=== PATIENT | male | born 1995 | race African-American/Black ===

== ENCOUNTER 2022-04-23 22:37 | Emergency (ER) | payer SELFPAY ==
[~2022-04-23] VITALS: Ht 177.8 cm; Wt 65.0 kg
[2022-04-23 23:00] VITALS: BP 123/78
[2022-04-24] MEDS ORDERED: OMEP40CA20 MT (08:07)
[2022-04-24] MEDS ORDERED: ONDA4TAB50 MT (08:07)
== END 2022-04-24 01:37 | disposition left against medical advice (07) ==
LOC: ER 22:37
DX: Z53.21 Procedure and treatment not carried out due to patient leaving prior to being seen by health care provider (principal)

== ENCOUNTER 2022-04-24 02:46 | Emergency (ER) | payer SELFPAY ==
[~2022-04-24] VITALS: Ht 175.3 cm; Wt 64.5 kg
[2022-04-24] MEDS ORDERED: MAGNESIUM/ALUMINUM HYDROXIDE/SIMETHICONE 30ML UDC PO STA (06:44)
[2022-04-24] MEDS ORDERED: ONDANSETRON 4MG ODT PO STA (06:44)
[2022-04-24] MEDS ORDERED: DICYCLOMINE 10 MG/5 ML ORAL SYR PO STA (06:44)
[2022-04-24 07:40] LABS: CLARITY URINE CLEAR (CLEAR); COLOR URINE YELLOW (YELLOW); KETONES URINE 3+ (NEGATIVE); LEUKOCYTE ESTERASE URINE TRACE (NEGATIVE); NITRITE URINE NEGATIVE (NEGATIVE); OCCULT BLOOD URINE NEGATIVE (NEGATIVE); PROTEIN URINE 2+ (NEGATIVE); SPECIFIC GRAVITY URINE 1.039 (1.005-1.030)
[2022-04-24 07:51] LABS: HEMATOCRIT. 41.3 % (42.0-52.0); HEMOGLOBIN. 13.7 g/dL (14.0-18.0); MEAN CORPUSCULAR HEMOGLOBIN 30.5 pg (28.0-32.0); MEAN CORPUSCULAR VOLUME 91.9 fL (80.0-94.0); MEAN PLATELET VOLUME 8.1 fl (7.4-10.4); PLATELET 189 x1000/uL (130-400); RED BLOOD CELL COUNT 4.49 mill/uL (4.7-6.1); RED CELL DISTRIBUTION WIDTH 13.8 % (11.6-14.6)
[2022-04-24 07:56] LABS: CHLORIDE 105 mEq/L (98-107)
[2022-04-24] MEDS ORDERED: ONDA4TAB50 MT (08:07)
[2022-04-24] MEDS ORDERED: OMEP40CA20 MT (08:07)
[2022-04-24 08:42] LABS: PLATELET ESTIMATE NORMAL
[2022-04-24 08:47] VITALS: BP 127/85
== END 2022-04-24 08:48 | disposition home or self-care (01) ==
LOC: ER 02:46
DX: R10.9 Unspecified abdominal pain (principal); R11.2 Nausea with vomiting, unspecified
CPT/HCPCS: 36415; 80053; 81003; 83690; 85025; 99284; Q0162